=== PATIENT | female | born 1985 | race Caucasian/White ===

== ENCOUNTER 2016-09-01 20:50 | Inpatient (IN) | payer OTHER ==
--- NOTE | 2016-09-01 21:00 | PDOC ---
Rapid Medical Evaluation Chief Complaint: Redness To Affected Area Time Seen by Provider: 09/01/16 20:53 Medical Evaluation: Allergies Allergy/AdvReac Type Severity Reaction Status Date / Time Fish Containing Products Allergy Mild Rash Verified 09/01/16 20:54 Vital Signs Temp Pulse Resp BP Pulse Ox 97.6 F 121 H 20 104/51 95 09/01/16 20:54 09/01/16 20:54 09/01/16 20:54 09/01/16 20:54 09/01/16 20:54 09/01/16 20:59 RME Note: I have performed a brief, in-person evaluation of this patient . This patient presents with CC: CC hand infections post IVDA. skin popping Pertinent PE findings are: STS redness for hands I have ordered: labs The patient will proceed to ED for further evaluation.
--- NOTE | 2016-09-01 22:21 | PDOC ---
History of Present Illness - General Chief Complaint: Redness To Affected Area Stated Complaint: INFECTION Time Seen by Provider: 09/01/16 20:53 - History of Present Illness Initial Comments: 09/01/16 22:21 CHIEF COMPLAINT: 31 yo F with hx of heroin abuse (via IV and skin popping) presents to ED with redness and swelling to bilateral hands and right foot. Patient states she has had the swelling in her hands for 5 days and to her R foot for two. Patient also states that she has been vomiting at least 3 times daily for the last week as well as chills and sweats. She is unsure if she had a fever at home. HISTORY OF PRESENT ILLNESS: No recent travel or sick contacts. PAST MEDICAL HISTORY: as per HPI FAMILY HISTORY: Denies SOCIAL HISTORY: Current pack daily smoker. Patient admits to heroin use this week. Chart review indicates prevous use of marijuana, cocaine, TCAs, Oxycodone SURGICAL HISTORY: Denies ALLERGIES: fish containing products REVIEW OF SYSTEMS General/Constitutional: Chills, sweats. HEENT: Denies change in vision. Denies ear pain or discharge. Denies sore throat. Cardiovascular: Denies chest pain or shortness of breath. Respiratory: Denies cough, wheezing, or hemoptysis. Gastrointestinal: Vomiting this week. Denies diarrhea or constipation. Denies rectal bleeding. Genitourinary: Denies dysuria, frequency, or change in urination. Musculoskeletal: Denies joint or muscle swelling or pain. Denies neck or back pain. Skin and breasts: Swelling, pain, redness to hands bilaterally, redness and pain to R foot. PHYSICAL EXAM General Appearance: Ill-appearing, disheveled. HEENT: EOMI, PERRLA, normal ENT inspection, normal voice, TMs normal, pharynx normal. No conjunctival pallor. No photophobia, scleral icterus. Respiratory/Chest: Lungs CTAB. Cardiovascular: RRR. S1, S2. Gastrointestinal/Abdominal: Normal bowel sounds. Abdomen soft, non-distended. No tenderness or rebound tenderness. No organomegaly, pulsatile mass, guarding , hernia, hepatomegaly, splenomegaly. Musculoskeletal/Extremities: Markedly edematous, erythematous hands, warm and tender to touch bilaterally with multiple injection sites and scarring to arms bilaterally. Erythematous, swollen right foot, warm, tender to touch. Normal inspection. FROM of all extremities, normal capillary refill. Pelvis Stable. No CVA tenderness. No tenderness to extremities, pedal edema, swelling, erythema or deformity. Integumentary: See MSK. Neurologic: Poor eye contact, flat affect, lethargic, appears under the influence of drugs. No appreciable EOM palsy, facial droop or sensory deficit. Past History - Past Medical History Allergies/Adverse Reactions: Allergies Allergy/AdvReac Type Severity Reaction Status Date / Time Fish Containing Products Allergy Mild Rash Verified 09/01/16 20:54 Home Medications: Ambulatory Orders NK [No Known Home Medication] 05/07/16 Anemia: No Asthma: No Cancer: No Cardiac Disorders: No CVA: No COPD: No CHF: No Dementia: No Diabetes: No GI Disorders: Yes Disorders: No HTN: No Hypercholesterolemia: No Kidney Stones: No Liver Disease: No Suicide Attempt (Hx): No Seizures: No Thyroid Disease: No - Surgical History Abdominal Surgery: No Appendectomy: No Cardiac Surgery: No Cholecystectomy: No Lung Surgery: No Neurologic Surgery: No Orthopedic Surgery: No - Psycho/Social/Smoking Cessation Hx Anxiety: Yes Suicidal Ideation: No Smoking History: Current every day smoker Have you smoked in the past 12 months: Yes Number of Cigarettes Smoked Daily: 20 Cigars Per Day: 0 Information on smoking cessation initiated: No 'Breaking Loose' booklet given: 05/07/16 Hx Alcohol Use: Yes Drug/Substance Use Hx: Yes (heroin) Substance Use Type: Heroin Hx Substance Use Treatment: No *Physical Exam - Vital Signs Last Vital Signs Temp Pulse Resp BP Pulse Ox 97.6 F 121 H 20 104/51 95 09/01/16 20:54 09/01/16 20:54 09/01/16 20:54 09/01/16 20:54 09/01/16 20:54 ED Treatment Course - LABORATORY CBC & Chemistry Diagram: 09/02/16 08:20 09/02/16 08:20 Medical Decision Making - Medical Decision Making 09/02/16 04:10 31 yo F with hx of heroin abuse (via IV and skin popping) presents to ED with redness and swelling to bilateral hands and right foot. Patient appears septic, will initiate sepsis protocol. Labs: WBC 13.7 Na+ 125 Creatinine markedly elevated to 3.4, BUN 99 (previous creatinine 0.8, BUN 18) CK-Index 7.4, CKMB 13.4, trop <0.02 -1L normal saline -600 mg Clindamycin for soft tissue infection Patient's PCP is Bobby. Will admit to hospitalist for acute renal failure. Discussed case with hospitalist attending MD Brown, will admit to med/surg. *DC/Admit/Observation/Transfer Diagnosis at time of Disposition: Acute renal failure Qualifiers: Acute renal failure type: unspecified Qualified Code(s): N17.9 - Acute kidney failure, unspecified - Discharge Dispostion Admit: Yes - Referrals
[2016-09-01] MEDS ORDERED: SODIUM CHLORIDE 0.9% 1000 ML INFUS.BAG IV PRN (22:22)
--- NOTE | 2016-09-01 23:35 | PDOC ---
*Physical Exam - Vital Signs Last Vital Signs Temp Pulse Resp BP Pulse Ox 97.6 F 121 H 20 104/51 95 09/01/16 20:54 09/01/16 20:54 09/01/16 20:54 09/01/16 20:54 09/01/16 20:54 ED Treatment Course - LABORATORY CBC & Chemistry Diagram: 09/02/16 08:20 09/02/16 08:20 Medical Decision Making - Medical Decision Making 09/01/16 23:34 agree with care from NAHEED Haque *DC/Admit/Observation/Transfer Diagnosis at time of Disposition: Acute renal failure
[2016-09-02 02:55] LABS: BASOPHIL 0.4 % (0-2.0); EOSINOPHIL 3.9 % (0-4.5); MCH 28.8 pg (25.7-33.7); MEAN CELL VOLUME 84.7 fl (80-96); MEAN PLT VOLUME 9.9 fl (7.5-11.1); NEUTROPHILS 87.1 % (42.8-82.8); PLATELET COUNT 97 K/MM3 (134-434); RDW 16.2 % (11.6-15.6); WHITE BLOOD COUNT 13.7 K/mm3 (4.0-10.0)
[2016-09-02 03:13] LABS: INR 1.34 (0.82-1.09); PROTHROMBIN TIME (PATIENT) 14.8 SEC (9.98-11.88)
[2016-09-02 03:15] LABS: ACTIVATED PTT 27.5 SECONDS (26.9-34.4)
[2016-09-02 03:21] LABS: BILIRUBIN,TOTAL 0.8 mg/dL (0.2-1.0); CALCIUM 7.8 mg/dL (8.5-10.1); CREATININE 3.4 mg/dL (0.55-1.02); TOT PROT 6.4 g/dl (6.4-8.2)
[2016-09-02 03:25] LABS: TROPONIN I < 0.02 ng/ml (0.00-0.05)
[2016-09-02] MEDS ORDERED: SODIUM CHLORIDE 0.9% 1000 ML INFUS.BAG IV ONE (03:48)
[2016-09-02] MEDS ORDERED: CLINDAMYCIN 600MG PREMIX IVPB 50 ML IVPB ONE ×2 (03:49→03:58)
--- NOTE | 2016-09-02 04:23 | PN ---
<Jese Ahuja - Last Filed: 09/02/16 05:12> Teaching Attending Note ATTENDING PHYSICIAN STATEMENT I saw and evaluated the patient. I reviewed the resident's note and discussed the case with the resident. I agree with the resident's findings and plan as documented. SUBJECTIVE: 31 year old female with history of heroin abuse via injection who presented to the emergency department for evaluation of erythema and edema of hands and right foot. Patient also stated that she has been vomiting for one week in duration. OBJECTIVE: Vital Signs: Last Vital Signs Temp Pulse Resp BP Pulse Ox 97.8 F 110 H 18 108/70 95 09/02/16 03:00 09/02/16 03:00 09/02/16 03:00 09/02/16 03:00 09/02/16 03:00 Labs: CBCD WBC 13.7 K/mm3 (4.0-10.0) H D 09/02/16 02:25 RBC 3.98 M/mm3 (3.60-5.2) 09/02/16 02:25 Hgb 11.4 GM/dL (10.7-15.3) D 09/02/16 02:25 Hct 33.7 % (32.4-45.2) D 09/02/16 02:25 MCV 84.7 fl (80-96) 09/02/16 02:25 MCHC 34.0 g/dl (32.0-36.0) 09/02/16 02:25 RDW 16.2 % (11.6-15.6) H D 09/02/16 02:25 Plt Count 97 K/MM3 (134-434) L D 09/02/16 02:25 MPV 9.9 fl (7.5-11.1) D 09/02/16 02:25 CMP Sodium 125 mmol/L (136-145) L D 09/02/16 02:25 Potassium 5.1 mmol/L (3.5-5.1) D 09/02/16 02:25 Chloride 86 mmol/L (98-107) L D 09/02/16 02:25 Carbon Dioxide 21 mmol/L (21-32) 09/02/16 02:25 Anion Gap 18 (8-16) H 09/02/16 02:25 BUN 99 mg/dL (7-18) H D 09/02/16 02:25 Creatinine 3.4 mg/dL (0.55-1.02) H D 09/02/16 02:25 Creat Clearance w eGFR 15.65 (>60) 09/02/16 02:25 Calcium 7.8 mg/dL (8.5-10.1) L 09/02/16 02:25 Total Bilirubin 0.8 mg/dL (0.2-1.0) D 09/02/16 02:25 AST 60 U/L (15-37) H D 09/02/16 02:25 ALT 26 U/L (12-78) D 09/02/16 02:25 Alkaline Phosphatase 145 U/L (45-117) H D 09/02/16 02:25 Total Protein 6.4 g/dl (6.4-8.2) 09/02/16 02:25 Albumin 2.0 g/dl (3.4-5.0) L D 09/02/16 02:25 Imagin. CXR IMPRESSION: No official reading. No acute findings. 2. ECG IMPRESSION: sinus tachycardia. RSR or QR pattern in V1 suggests right ventricular conduction delay. Borderline ECG. ASSESSMENT AND PLAN: 31 year old female with history of heroin abuse presented to the emergency department with redness and swelling to bilateral hands and right foot. Found to be septic. 1. Sepsis-secondary to cellulitis -s/p clindamycin in ED can continue -Blood culture -Urinary analysis/Urinary culture -Repeat lactic acid -IVF -Consider echo since history of drug abuse 2. Acute renal failure most likely due to volume loss -IVF -Trend creatinine -Urine lytes -If no improvement can consider renal ultrasound 3. Hyponatremia- most like from hypovolemia -Continue NS -Do not increases sodium >10mq in 24 hours 4. Metabolic acidosis-anion gap most likely due to uremia 5. Polysubstance drug abuse -Detox consult -Methadone protocol 6. Right lower extremity swelling -Duplex 7. DVT PPX-low risk -SCDs Admit to med surg. Documentation prepared by Jese Ahuja, acting as director global medical affairs for Dr. Marcio Brown MD. <Marcio Brown - Last Filed: 09/02/16 06:06> Teaching Attending Note Name of Resident: Homar Reyes Physical: VS: Vital Signs Period Temp Pulse Resp BP Sys/[place] Pulse Ox Last 24 Hr 97.2 F-97.8 F 104-121 16-20 104-117/51-70 95-98 GEN: NAD, Resting in bed HEENT: NCAT, PERRRL CARD: RRR S1, S2 RESP: CTAN AND: BSx4, NTd to palpation EXT: L hand edema and eyrthema extending to L. Wrist, R. Hand Erythema, Edema < L. Haf. Excoriations bilateral LE.
[2016-09-02] MEDS ORDERED: SODIUM CHLORIDE 1,000 ML IV SCH (05:30)
[2016-09-02] MEDS ORDERED: METHADONE HCL 10 MG TABLET PO ONE ×2 (05:36→23:00)
[2016-09-02] MEDS ORDERED: METHADONE HCL 10 MG TABLET ONE (05:46)
[2016-09-02] MEDS ORDERED: ACETAMINOPHEN 325 MG TABLET (FP) PO PRN (05:57)
--- NOTE | 2016-09-02 06:03 | HP ---
CHIEF COMPLAINT: B/L hand and R foot swelling PCP: Dr. Leonid Rosales HISTORY OF PRESENT ILLNESS: 31 y/o F w/PMH of polydrug abuse presents to ER w/ c/o B/L hand swelling and R foot swelling. History was difficult to obtain as pt appeared to still be high on drugs/shaking. Pt has had hand swelling for approx 1 week and R foot swelling for 2 days. She states she only uses her hands/arms for IV drug use but not her feet. She says she has been picking at her feet. She uses IV heroin , 3 bundles per day, last use was yesterday morning. She smokes crack daily, she smokes "a couple hundred dollars worth" per day. She c/o sweats and chills since yesterday. She states she's been nauseous and vomiting for last week but denied any blood in vomit. She did say she has been spitting up blood though. Further history was difficult to obtain. Denies CP, SOB. Pt did say she would consider rehab. ER course was notable for: (1) CXR, clinda, EKG (2) (3) PAST MEDICAL HISTORY: denies any PMH; heroin use, crack use, hx of marijuana, tca, and oxy use. PAST SURGICAL HISTORY: x3 Social History: Smokin/2 ppd Alcohol: denies Drugs: heroin use 3 bundles/day via IV, crack use via sniffing - 100-200 dollars worth/day, hx of marijuana, tca, and oxy use 3 children (ages 6, 9, 12) living with father who lives separately from pt Family History: non-contributory Allergies Fish Containing Products Allergy (Mild, Verified 09/01/16 20:54) Rash HOME MEDICATIONS: Home Medications Medication Instructions Recorded NK [No Known Home Medication] 05/07/16 REVIEW OF SYSTEMS CONSTITUTIONAL: chills, malaise Absent: fever, diaphoresis, generalized weakness, loss of appetite, weight change HEENT: Absent: rhinorrhea, nasal congestion, throat pain, throat swelling, difficulty swallowing, mouth swelling, ear pain, eye pain, visual changes CARDIOVASCULAR: Absent: chest pain, syncope, palpitations, irregular heart rate, lightheadedness , peripheral edema RESPIRATORY: Absent: cough, shortness of breath, dyspnea with exertion, orthopnea, wheezing, stridor, hemoptysis GASTROINTESTINAL: nausea, vomiting Absent: abdominal pain, abdominal distension, diarrhea, constipation, melena, hematochezia GENITOURINARY: Absent: dysuria, frequency, urgency, hesitancy, hematuria, flank pain, genital pain MUSCULOSKELETAL: Absent: myalgia, arthralgia, joint swelling, back pain, neck pain SKIN: b/l hand swelling and redness, R foot swelling Absent: rash, itching, pallor HEMATOLOGIC/IMMUNOLOGIC: Absent: easy bleeding, easy bruising, lymphadenopathy, frequent infections ENDOCRINE: Absent: unexplained weight gain, unexplained weight loss, heat intolerance, cold intolerance NEUROLOGIC: Absent: headache, focal weakness or paresthesias, dizziness, unsteady gait, seizure, mental status changes, bladder or bowel incontinence PSYCHIATRIC: Absent: anxiety, depression, suicidal or homicidal ideation, hallucinations. PHYSICAL EXAMINATION Vital Signs - 24 hr 09/02/16 05:03 Temperature 97.2 F L Pulse Rate [ 104 H Radial] Respiratory 16 Rate Blood Pressure 117/55 [Right Arm] O2 Sat by Pulse 98 Oximetry (%) GENERAL: Awake, alert, in moderate distress. Constant shaking, has body jolts, eyes rolling back. HEAD: Normal with no signs of trauma. EYES: extraocular movements intact, sclera anicteric, conjunctiva clear. EARS, NOSE, THROAT: Ears normal, nares patent NECK: Normal range of motion LUNGS: Breath sounds difficult to appreciate due to her constant movement. HEART: Difficult to auscultate due to her constant movement. ABDOMEN: Soft, nontender, not distended, no guarding, no rebound, no masses. No hepatomegaly or splenomegaly. UPPER EXTREMITIES: b/l hand swelling, tender to palpation, b/l hand redness. Multiple track ramirez on b/l hands LOWER EXTREMITIES: r calf tenderness, rle 1+ pitting edema, track ramirez/skin lesions on feet. NEUROLOGICAL: Delayed speech, Gait not observed. SKIN: as noted in extremities. CBCD WBC 13.7 K/mm3 (4.0-10.0) H D 09/02/16 02:25 RBC 3.98 M/mm3 (3.60-5.2) 09/02/16 02:25 Hgb 11.4 GM/dL (10.7-15.3) D 09/02/16 02:25 Hct 33.7 % (32.4-45.2) D 09/02/16 02:25 MCV 84.7 fl (80-96) 09/02/16 02:25 MCHC 34.0 g/dl (32.0-36.0) 09/02/16 02:25 RDW 16.2 % (11.6-15.6) H D 09/02/16 02:25 Plt Count 97 K/MM3 (134-434) L D 09/02/16 02:25 MPV 9.9 fl (7.5-11.1) D 09/02/16 02:25 CMP Sodium 125 mmol/L (136-145) L D 09/02/16 02:25 Potassium 5.1 mmol/L (3.5-5.1) D 09/02/16 02:25 Chloride 86 mmol/L (98-107) L D 09/02/16 02:25 Carbon Dioxide 21 mmol/L (21-32) 09/02/16 02:25 Anion Gap 18 (8-16) H 09/02/16 02:25 BUN 99 mg/dL (7-18) H D 09/02/16 02:25 Creatinine 3.4 mg/dL (0.55-1.02) H D 09/02/16 02:25 Creat Clearance w eGFR 15.65 (>60) 09/02/16 02:25 Random Glucose 79 mg/dL (74-106) 09/02/16 02:25 Calcium 7.8 mg/dL (8.5-10.1) L 09/02/16 02:25 Total Bilirubin 0.8 mg/dL (0.2-1.0) D 09/02/16 02:25 AST 60 U/L (15-37) H D 09/02/16 02:25 ALT 26 U/L (12-78) D 09/02/16 02:25 Alkaline Phosphatase 145 U/L (45-117) H D 09/02/16 02:25 Total Protein 6.4 g/dl (6.4-8.2) 09/02/16 02:25 Albumin 2.0 g/dl (3.4-5.0) L D 09/02/16 02:25 CARDIAC ENZYMES Creatine Kinase 181 IU/L (26-192) 03/21/17 02:25 Troponin I < 0.02 ng/ml (0.00-0.05) 09/02/16 02:25 Imaging: CXR: pending official read. as per my read: LLL infiltrate ASSESSMENT/PLAN: 31 y/o F w/PMH of polydrug abuse presents to ER with B/L hand swelling and redness and R foot swelling. Admitted for sepsis secondary to cellulitis from IVDA. -Sepsis secondary to cellulitis from IVDA vs possible PNA -clindamycin iv 900 q8h -ns @ 75ml/hr -f/u bcx, ucx, ua -tylenol 650 q6h prn for fever/pain -f/u lactic acid (currently 1.6) -for possible pna: no respiratory symptoms noted for now, monitor resp status , signs of further infection -will get b/l hand xr to check for air -LUC secondary to most likely dehydration/vomiting -NS @ 75 ml/hr -monitor BUN/Cr (99/3.4 currently) -baseline cr 0.8 in 2016 -urine lytes, urine Cr -RLE swelling -duplex U/S RLE ordered -Heroin abuse -methadone protocol -Dr. Lloyd consulted -f/u utox -DVT ppx -SCDs -FEN -NS @ 75ml/hr -hyponatremia, hypochloremia secondary to vomiting, on NS @ 75ml/hr, monitor lytes. Do not increase Na by >10 in 24hrs -Will hold diet for now until mental status improves -Dispo -Admit to m/s Problem List - Problem (1) Acute renal failure Code(s): N17.9 - ACUTE KIDNEY FAILURE, UNSPECIFIED Qualifiers: Acute renal failure type: unspecified Qualified Code(s): N17.9 - Acute kidney failure, unspecified (2) Opioid dependence with withdrawal Code(s): F11.23 - OPIOID DEPENDENCE WITH WITHDRAWAL (3) IV drug user Code(s): F19.90 - OTHER PSYCHOACTIVE SUBSTANCE USE, UNSPECIFIED, UNCOMPLICATED (4) Cellulitis Code(s): L03.90 - CELLULITIS, UNSPECIFIED (5) Sepsis Code(s): A41.9 - SEPSIS, UNSPECIFIED ORGANISM Visit type - Emergency Visit Emergency Visit: Yes ED Registration Date: 09/02/16 Care time: The patient presented to the Emergency Department on the above date and was hospitalized for further evaluation of their emergent condition. - New Patient This patient is new to me today: Yes Date on this admission: 09/02/16 - Critical Care Critical Care patient: No
[2016-09-02 08:48] LABS: ALBUMIN 1.6 g/dl (3.4-5.0); BILIRUBIN,TOTAL 0.7 mg/dL (0.2-1.0); CALCIUM 7.6 mg/dL (8.5-10.1); CREATININE 2.9 mg/dL (0.55-1.02); TOT PROT 5.4 g/dl (6.4-8.2)
[2016-09-02 08:50] LABS: BASOPHIL 0.2 % (0-2.0); EOSINOPHIL 3.9 % (0-4.5); MCH 28.5 pg (25.7-33.7); MEAN CELL VOLUME 86.1 fl (80-96); MEAN PLT VOLUME 9.2 fl (7.5-11.1); NEUTROPHILS 86.8 % (42.8-82.8); PLATELET COUNT 82 K/MM3 (134-434); RDW 15.9 % (11.6-15.6)
[2016-09-02] MEDS ORDERED: diazePAM 5 MG TABLET ONE (10:45)
[2016-09-02] MEDS: diazePAM 5 MG TABLET PO PRN (10:59)
[2016-09-02] MEDS: CLINDAMYCIN 900 MG PREMIX IVPB 50 ML IVPB SCH ×3 (10:59→20:12)
--- NOTE | 2016-09-02 11:52 | EKG ---
Test Reason : Blood Pressure : / mmHG Vent. Rate : 106 BPM Atrial Rate : 106 BPM P-R Int : 116 ms QRS Dur : 090 ms QT Int : 348 ms P-R-T Axes : 041 054 041 degrees QTc Int : 462 ms SINUS TACHYCARDIA RSR' OR QR PATTERN IN V1 SUGGESTS RIGHT VENTRICULAR CONDUCTION DELAY BORDERLINE ECG NO PREVIOUS ECGS AVAILABLE Confirmed by UMU CONTRERAS MD ([id number]) on 09/02/2016 11:52:20 AM Referred By: Confirmed By:UMU CONTRERAS MD
[2016-09-02] MEDS ORDERED: VANCOMYCIN 1 GRAM (PRE-DOCKED) 250 ML IVPB SCH (13:00)
--- NOTE | 2016-09-02 15:55 | PN ---
Physical Exam: SUBJECTIVE: Patient seen and examined Pt is sleepy respond to tactile stimuli Pt is easily irritable follow simple directions when she wants to OBJECTIVE: Vital Signs Period Temp Pulse Resp BP Sys/[place]ay[place] Pulse Ox Last 24 Hr 97.2 F 104 16 117/55 98 GENERAL: The patient is sleepy, arousable by tactile stimuli, in no acute distress. HEAD: Normal with no signs of trauma. EYES: PERRL, extraocular movements intact, sclera anicteric, conjunctiva clear. No ptosis. ENT: Ears normal, nares patent, oropharynx clear without exudates, dry mucous membranes.white patchy lesion in mouth NECK: Trachea midline, full range of motion, supple. LUNGS: Breath sounds equal, clear to auscultation bilaterally, no wheezes, no crackles, no accessory muscle use. HEART: Regular rate and rhythm, S1, S2 with grade 3 systolic murmur ABDOMEN: Soft, nontender, nondistended, normoactive bowel sounds, no guarding, no rebound, no hepatosplenomegaly, no masses. EXTREMITIES: 2+ pulses, warm, well-perfused. Right lower ext with 2+ edema in ankle. mild erythema, wound around left lateral maleoulus. lesion betwenn right 4th and 5th toe web. Multiple lesions with black/eschar center and surrounding redness. b/l hands with erythema, tenderness, hot, swollen NEUROLOGICAL: lethargic arousable to tactile stimuli . Normal speech, gait not observed. PSYCH: Normal mood, normal affect. SKIN: multiple lesion in lower ext, redness, swelling, tenderness, heat in b/l hands, multiple tract ramirez from b/l arms Laboratory Results - last 24 hr 09/02/16 09/02/16 09/02/16 08:20 08:20 08:20 WBC 12.0 H RBC 3.51 L Hgb 10.0 L D Hct 30.3 L MCV 86.1 MCHC 33.0 RDW 15.9 H Plt Count 82 L MPV 9.2 Neutrophils % 86.8 H Lymphocytes % 5.8 L Monocytes % 3.3 L Eosinophils % 3.9 Basophils % 0.2 ESR Sodium 127 L Potassium 4.9 Chloride 94 L Carbon Dioxide 21 Anion Gap 12 BUN 104 H Creatinine 2.9 H Creat Clearance w eGFR 18.81 Random Glucose 80 Lactic Acid 1.218 Calcium 7.6 L Total Bilirubin 0.7 AST 44 H D ALT 21 Alkaline Phosphatase 123 H Creatine Kinase 106 Total Protein 5.4 L Albumin 1.6 L 09/02/16 13:30 WBC RBC Hgb Hct MCV MCHC RDW Plt Count MPV Neutrophils % Lymphocytes % Monocytes % Eosinophils % Basophils % ESR 47 H Sodium Potassium Chloride Carbon Dioxide Anion Gap BUN Creatinine Creat Clearance w eGFR Random Glucose Lactic Acid Calcium Total Bilirubin AST ALT Alkaline Phosphatase Creatine Kinase Total Protein Albumin Active Medications Generic Name Dose Route Start Last Admin Trade Name Freq PRN Reason Stop Dose Admin Acetaminophen 650 mg 09/02/16 05:57 Tylenol - PO Q6H PRN FEVER OR PAIN Diazepam 10 mg 09/02/16 05:36 09/02/16 10:59 Valium - PO 09/05/16 05:35 10 mg Q4H PRN Administration WITHDRAWAL(CONT SUBST) Clindamycin Phosphate 50 mls @ 100 mls/hr 09/02/16 10:00 09/02/16 10:59 Cleocin 900 Mg Premix Ivpb - IVPB 100 mls/hr Q8H-IV TANNA Administration Vancomycin HCl 250 mls @ 250 mls/hr 09/02/16 13:00 Vancomycin (Pre-Docked) IVPB 09/03/16 12:59 ONCE TANNA Protocol Sodium Chloride 1,000 mls @ 125 mls/hr 09/02/16 12:54 Normal Saline - IV ASDIR TANNA Methadone HCl 20 mg 09/03/16 10:00 Dolophine - PO 09/03/16 10:01 ONCE ONE Methadone HCl 10 mg 09/06/16 10:00 Dolophine - PO 09/06/16 10:01 ONCE ONE Methadone HCl 15 mg 09/04/16 10:00 Dolophine - PO 09/04/16 10:01 ONCE ONE Methadone HCl 15 mg 09/05/16 10:00 Dolophine - PO 09/05/16 10:01 ONCE ONE Methadone HCl 5 mg 09/07/16 06:00 Dolophine - PO 09/07/16 06:01 ONCE@0600 ONE Sodium Chloride 1,000 ml 09/01/16 22:22 09/02/16 03:33 Normal Saline - IV 1,000 ml Q20M PRN Administration MAP<65mm Hg OR SBP <90 CBC, BMP 09/02/16 08:20 03/21/17 08:20 Laboratory Tests 09/02/16 09/02/16 09/02/16 02:25 02:25 02:25 WBC 13.7 H D Neutrophils % ESR Calcium AST 60 H D ALT 26 D Alkaline Phosphatase 145 H D Creatine Kinase 181 Troponin I < 0.02 Total Protein Albumin Serum , Qual 09/02/16 09/02/16 09/02/16 02:25 08:20 08:20 WBC 12.0 H Neutrophils % 86.8 H ESR Calcium 7.6 L AST 44 H D ALT 21 Alkaline Phosphatase 123 H Creatine Kinase 106 Troponin I Total Protein 5.4 L Albumin 1.6 L Serum , Qual Negative 09/02/16 13:30 WBC Neutrophils % ESR 47 H Calcium AST ALT Alkaline Phosphatase Creatine Kinase Troponin I Total Protein Albumin Serum , Qual ASSESSMENT/PLAN: Sepsis rt B/L hand celulitis leukocytosis, tachycardia redness, swelling, tenderness, heat in b/l hands Pt with h/o IV drug abuse, last use 3 days ago Multiple track ramirez On clindamycin 900mg IV q8h Tylenol 650mg po Q6h for pain R/o endocarditis Pt is an IV drug abuser with a murmur and leukocytosis has to be worried about Endocarditis Blood culture echocardiogram ESR Vancomycin 1 gm IV Monitor vital signs Lower ext wounds and lesions Wound care nurse consulted Consult Dr Reyes Right lower ext swelling r/o DVT US lower ext negative for DVT LUC Baseline 0.8, currently 3.4 then 2.9 Increase IV fluid to 125ml/h Urine creatinine Urine lytes FENA BUN to creatinine ratio above 33 hypovolemic Hyponatremia Will treat with Normal saline Increase NS from 75ml/h to 125ml/h CMP in am Polysubstance abuse Pt is open to going to rehab Methadone taper Valium PRN Dr Bentley Keller detox rehab consult FEN Fluid: NS at 125ml/h Electrolytes: CMP in am Nutrition: regular diet with assist DVT Prophylaxis : heparin Sq 5000 Units Q12h Disposition: Keep in medsurg pending culture and echo with antibiotic treatment Visit type - Emergency Visit Emergency Visit: Yes ED Registration Date: 09/02/16 Care time: The patient presented to the Emergency Department on the above date and was hospitalized for further evaluation of their emergent condition. - New Patient This patient is new to me today: Yes Date on this admission: 09/02/16 - Critical Care Critical Care patient: No - Discharge Referral Referred to [facility] Med [facility] Yes Physician Referral: Don Reyes DO ([facility])
[2016-09-02] MEDS ORDERED: VANCOMYCIN 1 GRAM (PRE-DOCKED) 250 ML IVPB ONE (16:10)
[2016-09-02] MEDS: SODIUM CHLORIDE 1,000 ML IV SCH (16:42)
[2016-09-02 17:31] VITALS: BMI 18.2
--- NOTE | 2016-09-02 17:31 | CONSULT ---
- Consultation REQUESTING PROVIDER: Vascular surgery-Dr. Reyes CONSULT REQUEST: We have been asked to surgically evaluate this patient for lower ext wounds. PCP:Mariia Robles HISTORY OF PRESENT ILLNESS: The patient is a 31 yo female who presented to the ER for bilateral hands swelling and right foot. A history was obtained from the admission H&P. She denies any h/o diabetes and according to the chart she uses IV heroin, crack, marijuana. The patient is also on methadone. She states that she is having swelling and only uses her arms for IV drug use, not her lower extremities. Positive chills/fevers. The patient is right hand dominant. The aptient states that she has scabs on her lower ext from scratching. PMHx: IV drug abuse PSHx: c section x 3, right ankle surgery for fracture Home Medications Medication Instructions Recorded NK [No Known Home Medication] 05/07/16 Allergies Allergy/AdvReac Type Severity Reaction Status Date / Time Fish Containing Products Allergy Mild Rash Verified 09/01/16 20:54 REVIEW OF SYSTEMS: CONSTITUTIONAL: Present: fever, chills Gastroenterology: Present: vomiting SKIN: Present: swelling hand/right foot redness PHYSICAL EXAM: GENERAL: lethargic but arousable HEART: Regular rate and tachycardic UPPER EXTREMITIES: 2+ pulses, warm, well-perfused. No cyanosis. Cap refill <2 seconds. b/l hand swelling left worse than right with fluctuant area to dorsum of hand. right upper forearm/inner elbow swollen and red. tender to touch LOWER EXTREMITIES: 2+ pulses, warm, well-perfused. Right calf with swelling, RLE on lateral aspect anterior to mallelous with 2x2cm blister and indurated area/erythema extending to anterior of forefoot/posterior heel. Medial aspect a healed incision over ankle approximately 3 linear cm. RLE tender to touch. bilateral lower ext with multiple superficial small scabs. No swelling to LLE. PSYCH: uncooperative with poor eye contact Vital Signs Temperature 97.2 F L 09/02/16 05:03 Pulse Rate 104 H 09/02/16 05:03 Respiratory Rate 16 09/02/16 05:03 Blood Pressure 117/55 09/02/16 05:03 O2 Sat by Pulse Oximetry (%) 98 09/02/16 05:03 Lab Results WBC 12.0 K/mm3 (4.0-10.0) H 09/02/16 08:20 RBC 3.51 M/mm3 (3.60-5.2) L 09/02/16 08:20 Hgb 10.0 GM/dL (10.7-15.3) L D 09/02/16 08:20 Hct 30.3 % (32.4-45.2) L 09/02/16 08:20 MCV 86.1 fl (80-96) 09/02/16 08:20 MCHC 33.0 g/dl (32.0-36.0) 09/02/16 08:20 RDW 15.9 % (11.6-15.6) H 09/02/16 08:20 Plt Count 82 K/MM3 (134-434) L 09/02/16 08:20 Sodium 127 mmol/L (136-145) L 09/02/16 08:20 Potassium 4.9 mmol/L (3.5-5.1) 09/02/16 08:20 Chloride 94 mmol/L (98-107) L 09/02/16 08:20 Carbon Dioxide 21 mmol/L (21-32) 09/02/16 08:20 Anion Gap 12 (8-16) 09/02/16 08:20 BUN 104 mg/dL (7-18) H 09/02/16 08:20 Creatinine 2.9 mg/dL (0.55-1.02) H 09/02/16 08:20 Random Glucose 80 mg/dL (74-106) 09/02/16 08:20 Calcium 7.6 mg/dL (8.5-10.1) L 09/02/16 08:20 Blood Type O POSITIVE 09/02/16 02:25 Antibody Screen Negative 09/02/16 02:25 INR 1.34 (0.82-1.09) H 09/02/16 02:25 Vacular study: 09/02- No evidence of DVT to RLE b/l hand xray 09/02-soft tissue swelling, no fractures/dislocations A/P: 31 yo female with IV drug abuse admitted for fever/swelling to upper ext and RLE Spoke with Dr. Reyes and recommend to continue IV abx No evidence of DVT to RLE but pt with blister and infected foot, ordered right foot xray to r/o fracture/trauma since patient is a poor historian. She may require I&D and surgery to follow the patient. Recommend hand consult for b/l swelling left>than right and fluctuant area elevate RLE/and b/l upper ext at all times Visit type - Case Type Case Type: ED Admission - Emergency Emergency Visit: Yes ED Registration Date: 09/02/16 Care time: The patient presented to the Emergency Department on the above date and was hospitalized for further evaluation of their emergent condition. - New patient This patient is new to me today: Yes Date on this admission: 09/02/16 - Critical Care Critical Care patient: No
--- NOTE | 2016-09-02 18:03 | PN ---
[id number] the resident's note and discussed the case with the resident. I agree with the resident's findings and plan as documented. SUBJECTIVE:pt is a poor historian, lethargic during our interview and frequent falls asleep during questioning and becomes agitated not wanting to answer questions. pt states she first had a pimple on her R foot (did not use lancet or device to break the skin) about a week ago, then 4 days ago noted swelling of the RLE. states she last injected heroin 3 days ago that she only does in her hands and denies ever injecting into her feet. denies CP, SOB,fever, chills, N/V/?CD, trauma to the foot. noted to have multiple excoriations all over her legs and arms when questioned she states she likes to pick at her skin. OBJECTIVE: Last Vital Signs Temp Pulse Resp BP Pulse Ox 97.2 F L 114 H 18 117/51 98 09/02/16 05:03 09/02/16 17:10 09/02/16 17:10 09/02/16 17:10 09/02/16 05:03 General lethargic. responds to verbal stimuli, disheveled. poor hygiene, thin appearing, older than stated age CV S1 S2 tachycardic. + murmur no rubs or gallops Extremities B/L hand non pitting edema and erythema. hands are non painful. pulses intact in the hands, excoriations along the arms and track ramirez noted in B/L antecubitals 1-2cm hemorrhagic indurated swelling on the lateral malleolus of the R foot. area is tender. <1cm swelling on anterior ankle with surrounding erythema, excoriations along both legs no osler nodes, janeway lesions, splinter hemorrhages or giron spots appreciated ASSESSMENT AND PLAN: 31yo F with PMH continous IV heroin abuse presented to the ER and was admitted for further evaluation of their emergent condition 1. sepsis due to cellulitis of the B/L hands- XR showing swelling limited to B/ L hands. started on clindamycin. concern for endocarditis given presence of murmur with IVDA. check ESR. give vanco x1. IVF. f/u Cx 2. R foot hemorrhagic lesion- unsure if this require drainage or just watchful waiting at this time. surgery consulted. XR of the foot pending 3. LUC- likel sepsis induced. check urine studies. avoid nephrotoxic medications. 4. Hyponatremia- dehydration. improving. do not believe lethargy is symptomatic of hyponatremia 5. pseudohypocalcemia- Corrected Ca 9.5 6. Continuos heroin abuse- currently lethargic due to methadone dose given, does wake up to verbal stimulation. detox consult placed. methadone protocol initiated. monitor for signs of withdrawal. unsure if she wants inpatient rehab at this time 7. DVT ppx- EAM
[2016-09-02 19:51] LABS: URINE APPEARANCE CLOUDY; URINE BILIRUBIN NEGATIVE (NEGATIVE); URINE BLOOD NEGATIVE (NEGATIVE); URINE COLOR YELLOW; URINE GLUCOSE (UA) NEGATIVE (NEGATIVE); URINE KETONE NEGATIVE (NEGATIVE); URINE NITRITE NEGATIVE (NEGATIVE); URINE PROTEIN NEGATIVE (NEGATIVE); URINE UROBILINOGEN 2.0 E.U/dl E.U./dl (0.2-1.0)
[2016-09-02 19:53] LABS: URINE LEUK ESTERASE 2+ (NEGATIVE)
[2016-09-02 19:58] LABS: GRANULAR CASTS 3 /lpf; URINE BACTERIA RARE /hpf (NONE SEEN); URINE RBC 4 /hpf (0-3); URINE WBC 35 /hpf (3-5)
[2016-09-02 19:59] LABS: URINE MARIJUANA THC NEGATIVE ng/ml (CUTOFF=50)
--- NOTE | 2016-09-02 22:15 | CONSULT ---
Consult Detox [facility] Reason for Current Admission/Consult: Opioid withdrawal Referred by:: Homar Reyes Res - History History of Present Illness: 31 y/o pt. with a 5 yr. hx. of heroin dependence is admitted because cellulitis/ abscess of the extremities. Pt. has hx. of detox last year at [facility]. - History Source History Provided By: Patient, Medical Record - Alcohol/Substance Use Hx Alcohol Use: Yes Hx Substance Use: Yes Hx Substance Use Treatment: Yes - Current Drug/Alcohol Use heroin Route: Injection Frequency: Daily Amount used: 20 to 30 bags Age of first use: 26 Date of Last Use: 09/01/16 - Past Medical History ...LMP: 05/09/10 - Significant Medical Findings: Laboratory Last Values WBC 12.7 K/mm3 (4.0-10.0) H 09/03/16 06:30 RBC 3.06 M/mm3 (3.60-5.2) L 09/03/16 06:30 Hgb 8.7 GM/dL (10.7-15.3) L D 09/03/16 06:30 Hct 26.2 % (32.4-45.2) L 09/03/16 06:30 MCV 85.5 fl (80-96) 09/03/16 06:30 MCHC 33.2 g/dl (32.0-36.0) 09/03/16 06:30 RDW 16.2 % (11.6-15.6) H 09/03/16 06:30 Plt Count 92 K/MM3 (134-434) L 09/03/16 06:30 MPV 8.3 fl (7.5-11.1) 09/03/16 06:30 Neutrophils % 91.5 % (42.8-82.8) H 09/03/16 06:30 Lymphocytes % 5.1 % (8-40) L 09/03/16 06:30 Monocytes % 2.5 % (3.8-10.2) L 09/03/16 06:30 Eosinophils % 0.5 % (0-4.5) D 09/03/16 06:30 Basophils % 0.4 % (0-2.0) 09/03/16 06:30 ESR 47 mm/hr (0-20) H 09/02/16 13:30 INR 1.34 (0.82-1.09) H 09/02/16 02:25 PTT (Actin FS) 27.5 SECONDS (26.9-34.4) 09/02/16 02:25 Sodium 134 mmol/L (136-145) L 09/03/16 06:30 Potassium 4.4 mmol/L (3.5-5.1) 09/03/16 06:30 Chloride 101 mmol/L (98-107) 09/03/16 06:30 Carbon Dioxide 21 mmol/L (21-32) 09/03/16 06:30 Anion Gap 12 (8-16) 09/03/16 06:30 BUN 72 mg/dL (7-18) H D 09/03/16 06:30 Creatinine 1.7 mg/dL (0.55-1.02) H D 09/03/16 06:30 Creat Clearance w eGFR 34.83 (>60) 09/03/16 06:30 Random Glucose 87 mg/dL (74-106) 09/03/16 06:30 Lactic Acid 1.218 mmol/L (0.4-2.0) 09/02/16 08:20 Calcium 7.3 mg/dL (8.5-10.1) L 09/03/16 06:30 Phosphorus 3.8 mg/dL (2.5-4.9) 09/03/16 06:30 Magnesium 2.5 mg/dL (1.8-2.4) H 09/03/16 06:30 Total Bilirubin 0.9 mg/dL (0.2-1.0) D 09/03/16 06:30 AST 27 U/L (15-37) D 09/03/16 06:30 ALT 17 U/L (12-78) 09/03/16 06:30 Alkaline Phosphatase 112 U/L (45-117) 09/03/16 06:30 Creatine Kinase 106 IU/L (26-192) 09/02/16 08:20 Creatine Kinase Index 7.4 % (0.0-5.0) H* 09/02/16 02:25 CK-MB (CK-2) 13.409 ng/ml (0.5-3.6) H 09/02/16 02:25 Troponin I < 0.02 ng/ml (0.00-0.05) 09/02/16 02:25 Total Protein 5.3 g/dl (6.4-8.2) L 09/03/16 06:30 Albumin 1.5 g/dl (3.4-5.0) L 09/03/16 06:30 Serum , Qual Negative 09/02/16 02:25 Urine Color Yellow 09/02/16 19:24 Urine Appearance Cloudy 09/02/16 19:24 Urine pH 5.0 (5.0-8.0) 09/02/16 19:24 Ur Specific [place] 1.015 (1.001-1.035) 09/02/16 19:24 Urine Protein Negative (NEGATIVE) 09/02/16 19:24 Urine Glucose (UA) Negative (NEGATIVE) 09/02/16 19:24 Urine Ketones Negative (NEGATIVE) 09/02/16 19:24 Urine Blood Negative (NEGATIVE) 09/02/16 19:24 Urine Nitrite Negative (NEGATIVE) 09/02/16 19:24 Urine Bilirubin Negative (NEGATIVE) 09/02/16 19:24 Urine Urobilinogen 2.0 e.u/dl E.U./dl (0.2-1.0) H 09/02/16 19:24 Ur Leukocyte Esterase 2+ (NEGATIVE) H 09/02/16 19:24 Urine RBC 4 /hpf (0-3) 09/02/16 19:24 Urine WBC 35 /hpf (3-5) 09/02/16 19:24 Ur Epithelial Cells Rare /hpf (FEW) 09/02/16 19:24 Urine Bacteria Rare /hpf (NONE SEEN) 09/02/16 19:24 Granular Casts 3 /lpf 09/02/16 19:24 Ur Random Sodium 29 MMOL/L 09/03/16 06:15 Ur Random Potassium 14.2 MMOL/L 09/03/16 06:15 Ur Random Chloride < 10 MMOL/L 09/03/16 06:15 Urine Creatinine 47.2 mg/dL 09/03/16 06:15 Random Vancomycin 19.149 ug/ml 09/03/16 22:02 Opiates Screen Positive ng/ml (RRPBLJ=857) 09/02/16 19:24 Methadone Screen Positive ng/ml (BHZCXM=299) 09/02/16 19:24 Barbiturate Screen Negative ng/ml (ZHSAML=878) 09/02/16 19:24 Phencyclidine Screen Negative ng/ml (CUTOFF=25) 09/02/16 19:24 Ur Amphetamines Screen Negative ng/ml (MNNHIT=751) 09/02/16 19:24 MDMA (Ecstasy) Screen Negative ng/ml (OPSVPC=352) 09/02/16 19:24 Benzodiazepines Screen Negative ng/ml (HAHZLF=966) 09/02/16 19:24 Cocaine Screen Positive ng/ml (CAONAN=648) 09/02/16 19:24 U Marijuana (THC) Screen Negative ng/ml (CUTOFF=50) 09/02/16 19:24 HIV 1&2 Antibody Screen Negative 09/03/16 06:30 HIV P24 Antigen Negative 09/03/16 06:30 Blood Type O POSITIVE 09/02/16 02:25 Antibody Screen Negative 09/02/16 02:25 labs noted COWS - Scale Resting Pulse: 2= [place] 101-120 Sweatin=Flushed/Facial Moisture Restless Observation: 1= Difficult to Sit Still Pupil Size: 2= Moderately Dilated Bone or Joint Aches: 2= Severe Diffuse Aches Runny Nose/ Eye Tearin= Runny Nose/Eyes GI Upset > 30mins: 3= Vomiting/Diarrhea Tremor Observation: 2= Slight Tremor Visible Yawning Observation: 1= 1-2x During Session Anxiety or Irritability: 2=Irritable/Anxious Goose Flesh Skin: 0=Smooth Skin COWS Score: 19 Assessment Plan - Diagnosis (1) Acute renal failure Status: Acute Qualifiers: Acute renal failure type: unspecified Qualified Code(s): N17.9 - Acute kidney failure, unspecified (2) Opioid dependence with withdrawal Status: Acute (3) Cellulitis Status: Acute (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 was transferred to [facility] for Cardio-thoraxic care if needed - Medication Detox Regimen/Protocol: Methadone
[2016-09-03] MEDS: CLINDAMYCIN 900 MG PREMIX IVPB 50 ML IVPB SCH ×2 (03:02→11:01)
[2016-09-03] MEDS: SODIUM CHLORIDE 1,000 ML IV SCH ×3 (05:47→21:02)
--- NOTE | 2016-09-03 07:44 | PN ---
Physical Exam: SUBJECTIVE: Patient seen and examined Pt seen ths morning looks uncomfortable and fidgety, anxious and restless c/o pain in right hand no fever, no chills no n/v c/o productive cough with brown and bloody sputum sputum OBJECTIVE: Vital Signs Period Temp Pulse Resp BP Sys/[place] Pulse Ox Last 24 Hr 97.8 F-98.4 F 104-114 18-20 112-117/51-61 96 GENERAL: The patient is sleepy, arousable by tactile stimuli, in no acute distress. HEAD: Normal with no signs of trauma. EYES: PERRL, extraocular movements intact, sclera anicteric, conjunctiva clear. No ptosis. ENT: Ears normal, nares patent, oropharynx clear without exudates, dry mucous membranes.white patchy lesion in mouth NECK: Trachea midline, full range of motion, supple. LUNGS: Breath sounds equal, clear to auscultation bilaterally, no wheezes, no crackles, no accessory muscle use. HEART: Regular rate and rhythm, S1, S2 with grade 3 systolic murmur ABDOMEN: Soft, nontender, nondistended, normoactive bowel sounds, no guarding, no rebound, no hepatosplenomegaly, no masses. EXTREMITIES: 2+ pulses, warm, well-perfused. Right lower ext with 2+ edema in ankle. mild erythema, wound around left lateral maleoulus with blisters. Lesion between right 4th and 5th toe web. Multiple lesions with black/eschar center and surrounding redness. b/l hands with erythema, tenderness, hot, swollen NEUROLOGICAL: lethargic arousable to tactile stimuli . Normal speech, gait not observed. PSYCH: Normal mood, normal affect. SKIN: multiple lesion in lower ext, redness, swelling, tenderness, heat in b/l hands, multiple tract ramirez from b/l arms Laboratory Results - last 24 hr 09/02/16 09/02/16 09/02/16 08:20 08:20 08:20 WBC 12.0 H RBC 3.51 L Hgb 10.0 L D Hct 30.3 L MCV 86.1 MCHC 33.0 RDW 15.9 H Plt Count 82 L MPV 9.2 Neutrophils % 86.8 H Lymphocytes % 5.8 L Monocytes % 3.3 L Eosinophils % 3.9 Basophils % 0.2 ESR Sodium 127 L Potassium 4.9 Chloride 94 L Carbon Dioxide 21 Anion Gap 12 BUN 104 H Creatinine 2.9 H Creat Clearance w eGFR 18.81 Random Glucose 80 Lactic Acid 1.218 Calcium 7.6 L Total Bilirubin 0.7 AST 44 H D ALT 21 Alkaline Phosphatase 123 H Creatine Kinase 106 Total Protein 5.4 L Albumin 1.6 L Urine Color Urine Appearance Urine pH Ur Specific [place] Urine Protein Urine Glucose (UA) Urine Ketones Urine Blood Urine Nitrite Urine Bilirubin Urine Urobilinogen Ur Leukocyte Esterase Urine RBC Urine WBC Ur Epithelial Cells Urine Bacteria Granular Casts Opiates Screen Methadone Screen Barbiturate Screen Phencyclidine Screen Ur Amphetamines Screen MDMA (Ecstasy) Screen Benzodiazepines Screen Cocaine Screen U Marijuana (THC) Screen 09/02/16 09/02/16 09/02/16 13:30 19:24 19:24 WBC RBC Hgb Hct MCV MCHC RDW Plt Count MPV Neutrophils % Lymphocytes % Monocytes % Eosinophils % Basophils % ESR 47 H Sodium Potassium Chloride Carbon Dioxide Anion Gap BUN Creatinine Creat Clearance w eGFR Random Glucose Lactic Acid Calcium Total Bilirubin AST ALT Alkaline Phosphatase Creatine Kinase Total Protein Albumin Urine Color Yellow Urine Appearance Cloudy Urine pH 5.0 Ur Specific [place] 1.015 Urine Protein Negative Urine Glucose (UA) Negative Urine Ketones Negative Urine Blood Negative Urine Nitrite Negative Urine Bilirubin Negative Urine Urobilinogen 2.0 e.u/dl H Ur Leukocyte Esterase 2+ H Urine RBC 4 Urine WBC 35 Ur Epithelial Cells Rare Urine Bacteria Rare Granular Casts 3 Opiates Screen Positive Methadone Screen Positive Barbiturate Screen Negative Phencyclidine Screen Negative Ur Amphetamines Screen Negative MDMA (Ecstasy) Screen Negative Benzodiazepines Screen Negative Cocaine Screen Positive U Marijuana (THC) Screen Negative Active Medications Generic Name Dose Route Start Last Admin Trade Name Freq PRN Reason Stop Dose Admin Acetaminophen 650 mg 09/02/16 05:57 Tylenol - PO Q6H PRN FEVER OR PAIN Diazepam 10 mg 09/02/16 05:36 09/02/16 10:59 Valium - PO 09/05/16 05:35 10 mg Q4H PRN Administration WITHDRAWAL(CONT SUBST) Clindamycin Phosphate 50 mls @ 100 mls/hr 09/02/16 10:00 09/03/16 03:02 Cleocin 900 Mg Premix Ivpb - IVPB 100 mls/hr Q8H-IV TANNA Administration Vancomycin HCl 250 mls @ 250 mls/hr 09/02/16 13:00 09/02/16 13:42 Vancomycin (Pre-Docked) IVPB 09/03/16 12:59 250 mls/hr ONCE TANNA Administration Protocol Sodium Chloride 1,000 mls @ 125 mls/hr 09/02/16 12:54 09/03/16 05:47 Normal Saline - IV 125 mls/hr ASDIR TANNA Administration Methadone HCl 20 mg 09/03/16 10:00 Dolophine - PO 09/03/16 10:01 ONCE ONE Methadone HCl 10 mg 09/06/16 10:00 Dolophine - PO 09/06/16 10:01 ONCE ONE Methadone HCl 15 mg 09/04/16 10:00 Dolophine - PO 09/04/16 10:01 ONCE ONE Methadone HCl 15 mg 09/05/16 10:00 Dolophine - PO 09/05/16 10:01 ONCE ONE Methadone HCl 5 mg 09/07/16 06:00 Dolophine - PO 09/07/16 06:01 ONCE@0600 ONE Sodium Chloride 1,000 ml 09/01/16 22:22 09/02/16 03:33 Normal Saline - IV 1,000 ml Q20M PRN Administration MAP<65mm Hg OR SBP <90 CBC, BMP 09/03/16 06:30 09/03/16 06:30 Microbiology 09/02/16 02:25 Blood - Peripheral Venous Blood Culture - Preliminary Presumptive Mrsa (Pbp2a Pos) 09/02/16 02:25 Blood - Peripheral Venous Blood Culture - Preliminary Pending Organism Laboratory Tests 09/02/16 09/02/16 09/03/16 13:30 19:24 06:15 ESR 47 H Ur Random Sodium Ur Random Potassium Ur Random Chloride Urine Creatinine Cancelled Random Vancomycin Opiates Screen Positive Methadone Screen Positive Cocaine Screen Positive HIV 1&2 Antibody Screen HIV P24 Antigen 09/03/16 09/03/16 09/03/16 06:15 06:30 06:30 ESR Ur Random Sodium 29 Ur Random Potassium 14.2 Ur Random Chloride < 10 Urine Creatinine Random Vancomycin 13.576 Opiates Screen Methadone Screen Cocaine Screen HIV 1&2 Antibody Screen Negative HIV P24 Antigen Negative ASSESSMENT/PLAN: Sepsis rt B/L hand cellulitis leukocytosis, tachycardia redness, swelling, tenderness, heat in b/l hands Pt with h/o IV drug abuse, last use 3 days ago Multiple track ramirez On clindamycin 900mg IV q8h Tylenol 650mg po Q6h for pain Blood culture pending ESR 47 No plastic needed nothing to drain ID consult Dr Souza R/o endocarditis Pt is an IV drug abuser with a murmur and leukocytosis has to be worried about Endocarditis Blood culture positve Gram positive cocci echocardiogram with vegetation in tricuspid ESR 47 received Vancomycin 1 gm IV yesterday Random vanco 13, Will give one more dose of Vancomycin 1gm IV Monitor vital signs ID consult, dr Souza Cardiology Consult, dr Miller UTI UA with postive leuk est, wbc 35 Urine culture ordered Lower ext wounds and lesions Wound care nurse consulted Dr Reyes consulted Xray right ankle ordered Possible I&D in the future Right lower ext swelling r/o DVT US lower ext negative for DVT Patchy infiltrates b/l lungs r/o PNA vs Septic emboli c/o yellow, brown, bloody sputum productive cough b/l crackles Consider sputum culture ad gram stain Consider urine for PNA antigens CT chest LUC Baseline 0.8, currently 3.4 then 2.9 IV fluid to 125ml/h Urine creatinine pending Urine lytes pending FENA pending BUN to creatinine ratio above 33 CMP pending result for this morning hypovolemic Hyponatremia Will treat with Normal saline Increase NS from 125ml/h to 75ml/h CMP pending Polysubstance abuse Pt is open to going to rehab Methadone taper Valium PRN Dr Bentley Keller detox rehab consult, see pt last night night FEN Fluid: NS at 75ml/h Electrolytes: CMP Nutrition: regular diet with assist DVT Prophylaxis : heparin Sq 5000 Units Q12h Disposition: Keep in medsurg pending final culture and echo with antibiotic treatment Visit type - Emergency Visit Emergency Visit: Yes ED Registration Date: 09/02/16 Care time: The patient presented to the Emergency Department on the above date and was hospitalized for further evaluation of their emergent condition. - New Patient This patient is new to me today: No - Critical Care Critical Care patient: No - Discharge Referral Referred to [facility] Med P.C.: No
[2016-09-03 07:48] LABS: MAGNESIUM 2.5 mg/dL (1.8-2.4); PHOSPHOROUS 3.8 mg/dL (2.5-4.9)
[2016-09-03] MEDS ORDERED: VANCOMYCIN 1 GRAM (PRE-DOCKED) 250 ML IVPB SCH (09:45)
--- NOTE | 2016-09-03 09:50 | PN ---
Progress Note (short form) - Note Progress Note: Pt just returned from xray and has complaints of pain. Vital Signs Period Temp Pulse Resp BP Sys/[place] Pulse Ox Last 24 Hr 97.8 F-98.4 F 104-114 18-20 112-124/51-61 96 PE: GEN: appears uncomfortable, more alert today UE: b/l hand with swelling/erythema unchanged. Right forearm feels indurated/ erythema. Right lower ext /foot with decreased swelling. Blister remains unchanged but overall erythema/induration decreased. Right foot/ankle xray: previous medial malleolar stabilization screws. No fracture or subluxation seen. CBC, BMP 09/02/16 08:20 09/02/16 08:20 Microbiology 09/02/16 02:25 Blood - Peripheral Venous Blood Culture - Preliminary Pending Organism 09/02/16 02:25 Blood - Peripheral Venous Blood Culture - Preliminary Pending Organism A/P: 31 yo female with IVDA, now with b/l hand swelling and cellulitis and Right ankle/foot cellulitis. Pt also with ULC. Evidence of improvment to right right ankle/foot infection. Xray no fracture/ foreign body seen. Recommend to continue IV abx as per ID. Elevate extremities at all times. Surgery to follow the patient. May apply bacitracin to right anterior foot scabbed area.
[2016-09-03] MEDS ORDERED: METHADONE HCL 10 MG TABLET PO ONE (10:00)
[2016-09-03 10:08] LABS: BASOPHIL 0.4 % (0-2.0); EOSINOPHIL 0.5 % (0-4.5); MCH 28.4 pg (25.7-33.7); MCHC 33.2 g/dl (32.0-36.0); MEAN CELL VOLUME 85.5 fl (80-96); MEAN PLT VOLUME 8.3 fl (7.5-11.1); NEUTROPHILS 91.5 % (42.8-82.8); PLATELET COUNT 92 K/MM3 (134-434); RDW 16.2 % (11.6-15.6); WHITE BLOOD COUNT 12.7 K/mm3 (4.0-10.0)
[2016-09-03 10:09] LABS: SODIUM,RANDOM URINE 29 MMOL/L
[2016-09-03 10:11] LABS: CHLORIDE,RANDOM URINE < 10 MMOL/L
[2016-09-03 10:14] LABS: HIV 1 & 2 AB NEGATIVE; HIV 1 AGp24 NEGATIVE
[2016-09-03 10:59] LABS: ALBUMIN 1.5 g/dl (3.4-5.0); BILIRUBIN,TOTAL 0.9 mg/dL (0.2-1.0); CALCIUM 7.3 mg/dL (8.5-10.1); CREATININE 1.7 mg/dL (0.55-1.02); TOT PROT 5.3 g/dl (6.4-8.2)
--- NOTE | 2016-09-03 11:57 | PN ---
Progress Note (short form) - Note Progress Note: Consult Dictated MRSA bacteremia TV echodensity suspicious for vegetation REC: Likely endocarditis. Would treat as such. Can perform NATHAN if needed.
--- NOTE | 2016-09-03 11:59 | PN ---
Progress Note (short form) - Note Progress Note: ID consult dictated imp/reccd 31 year old female active IVDU with heroin also uses cocaine/etoh/marijuana and cigarettes hep C positive admitted with vomiting for one week and erythema of both hands and right foot for last 5 days admits to injecting in the dorsum of both hands does not inject in her feet +myalgias- total body no documented fevers originally from [place] staying with friends and 3 children in [place] Staphylococcal endocarditis- tricuspid valve- suspect septic emboli to lung given appearance of cxray- will get chest ct suggest repeat blood cultures cardiology consult suspect intense myalgias are due to bacteremia and drug withdrawal continue vancomycin based on levels esr/crp duplex both arms cellulitis of both hands/right foot (with hardware) hep c positive hiv negative active substance use Problem List - Problems (1) Endocarditis due to Staphylococcus Code(s): I33.0 - ACUTE AND SUBACUTE INFECTIVE ENDOCARDITIS B95.8 - UNSP STAPHYLOCOCCUS THE CAUSE OF DISEASES CLASSD ELSWHR (2) Cellulitis Code(s): L03.90 - CELLULITIS, UNSPECIFIED (3) IV drug user Code(s): F19.90 - OTHER PSYCHOACTIVE SUBSTANCE USE, UNSPECIFIED, UNCOMPLICATED (4) Hep C w/o coma, chronic Code(s): B18.2 - CHRONIC VIRAL HEPATITIS C
[2016-09-03 12:30] LABS: URINE CREATININE 47.2 mg/dL
--- NOTE | 2016-09-03 14:05 | PN ---
Teaching Attending Note Name of Resident: Mikey Brown ATTENDING PHYSICIAN STATEMENT I saw and evaluated the patient. I reviewed the resident's note and discussed the case with the resident. I agree with the resident's findings and plan as documented. SUBJECTIVE:c/o diffuse myalgia. no improvement in pain in RLE or hands. assoc SEBASTIAN. denies CP, fever, chills, cough, N/V/C/D OBJECTIVE: Last Vital Signs Temp Pulse Resp BP Pulse Ox 98.1 F 112 H 20 124/55 96 09/03/16 08:36 09/03/16 08:36 09/03/16 08:36 09/03/16 08:36 09/02/16 21:00 General more alert today, no giron spots CV S1 S2 tachycardic. + murmur no rubs or gallops Lungs B/L basal crackles. no wheezing Extremities B/L hand non pitting edema and erythema.hands are painful with swelling of the 2nd distal metacarpal joint of the L hand. RUE appears to be more edematous. no change in hemorrhagic bulla R foot lateral malleolus no splinter hemorrhages, osler nodes or janeway lesions Microbiology 09/02/16 02:25 Blood Culture - Preliminary Blood - Peripheral Venous Presumptive Mrsa (Pbp2a Pos) 09/02/16 02:25 Blood Culture - Preliminary Blood - Peripheral Venous Pending Organism ASSESSMENT AND PLAN: 31yo F with PMH continous IV heroin abuse presented to the ER and was admitted for further evaluation of their emergent condition 1. Sepsis due to Endocarditis- Bcx showing MRSA at this time. concern for septic emboli to the lungs. obtain CT chest. RUE u/s to r/o DVT in upper extremity. ID and cardio consulted. will d/c clindamycin at this point and continue vanco by level. concern as will need terminal makeup operator abx with hx of IVDA. will repeat Bcx in 72H to evaluate for clearing of infection. supplemental oxygen to maintain spO2 >90% 2. R foot hemorrhagic lesion- monitor 3. LUC- likely sepsis induced. Fena 0.78, Cr trending down. good UOP. will reduce IVF at this time due to development of crackles. avoid nephrotoxic medications. 4. Hyponatremia- dehydration. resolved 5. pseudohypocalcemia- Corrected Ca 9.5 6. Continuos heroin abuse-COWS 13. on methadone taper. detox evaluation. monitor. 7. DVT ppx- EAM
[2016-09-03] MEDS: diazePAM 5 MG TABLET PO PRN (16:57)
--- NOTE | 2016-09-03 18:37 | CONS ---
INFECTIOUS DISEASE CONSULTATION DATE OF CONSULTATION: DATE OF DICTATION: 09/03/2016 REQUESTED BY: The hospitalist service DICTATED BY: SURESH MEDINA MD HISTORY OF PRESENT ILLNESS: This is a 31-year-old woman who is an active heroine user, injection-drug user. She presented to the emergency room with complaints of 5 days of bilateral hand swelling. She injects in the dorsum of her hands and in her forearms. As well, she is complaining of right leg pain. She has apparently been vomiting as well for a week. She denies any antibiotic use prior to admission. She is originally from [place]. She is staying here with friends. She is unable to say when she fractured her right ankle, which has an incision and hardware at this time. She complains of intense myalgias and discomfort but is hungry and wants to eat. Looking through the computer, she was hospitalized once in April of 2016 for a de-tox, and her hepatitis C serology was positive at that time. ALLERGIES: She is allergic to FISH-CONTAINING PRODUCTS. MEDICATIONS: She does not take any medicine. PAST MEDICAL HISTORY: Unremarkable. SURGICAL HISTORY: Surgical history is notable for a x 3. She has also fractured her right ankle, and medical history is notable for hepatitis C. She was evaluated in the emergency room and started on clindamycin for cellulitis. SOCIAL HISTORY: Notable for cigarette use. She uses heroine, crack. She has a history of prior marijuana and oxycodone use. She has 3 children, ages 6, 9 and 12 who live with their father in [place]. She is originally from [place], and she has been living here for the last 6 months down in [place]. FAMILY HISTORY: Noncontributory. REVIEW OF SYSTEMS: She complains of intense myalgias. She does not know if she has been having fever. She has been vomiting at home. She has bilateral hand swelling and right foot swelling and pain. PHYSICAL EXAM: General: She is sleepy but arouseable. Vital signs: Her temperature is 98.1, pulse of 112. Blood pressure is 124/55. Respiratory rate is 20. HEENT exam: She is normocephalic. Her eyes are anicteric. She has no conjunctival hemorrhages. Her neck is supple. She has no meningeal signs. Lungs: Diminished breath sounds at the bases. Heart: Regular rate and rhythm. She has a 2/6 systolic ejection murmur. Abdomen: Soft, nondistended. She has bowel sounds. She has a well-healed scar. Extremities: Notable for an incision at the medial malleolus that is well-healed. On the lateral malleolus of the right foot, she has a blister on the lateral aspect. She has bilateral hand swelling. Both her hands are indurated. She has erythema of the right hand, which extends up to her right forearm. There are some track ramirez as well on her arms. LABS: Notable for a white count of 12.7, hemoglobin 8.7. Platelets are 92,000. Sed rate is 47. INR is 1.3. BUN and creatinine on admission were 99 and 3.4, this morning were 72 and 1.7. Total bilirubin is 0.9. LFTs are normal today. Albumin is 1.5. Urinalysis is 2+ leukocyte esterase with 35 white cells. Tox screen was positive for opiates, methadone and cocaine, and her HIV test is negative. Blood cultures 404 bottles drawn yesterday are growing gram positive cocci in clusters, presumptive MRSA. Chest x-ray reveals bilateral patchy infiltrates that look kind of mass-like and nodular. X-rays of her hands and feet are notable for hardware in her right foot. She has 2 screws. She had a duplex of the right leg done as well that is negative. Hands are notable for swelling on the x-rays, soft tissue swelling of both the hands. Echocardiogram was just done and shows a possible tricuspid valve vegitation. 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 I suspect septic emboli to her lung, given the appearance of the chest x-ray. Will get a chest CT to confirm. Suggest repeating blood cultures, cardiology consult. Suspect the intense myalgias are due to her bacteremia and drug withdrawal. PLAN: 1. Would continue vancomycin based on levels. Follow her sed rate CRP with duplex her arms. She has cellulitis of both her arms and her foot. Would continue vancomycin, which should be appropriate care. She is hepatitis C positive and HIV negative. 2. Further recommendations to follow. The case was discussed with Cardiology as well as Dr. Robles. SURESH MEDINA M.D. [id number] cc: Mariia Robles MD
--- NOTE | 2016-09-03 19:08 | HOSP ---
Subjective - Review of Symptoms Subjective: CT chest performed and reviewed results discussed with both ID and cardiology, due to extent of disease pt would benefit from transfer to tertiary care center for higher level of care as well as to have CT surgeon on standby. case d/w Dr Muñoz who agreed with transfer Pt accepted by Dr Cunningham at [facility] Physical Examination Vital Signs: Vital Signs Temperature 98.9 F 09/03/16 17:31 Pulse Rate 107 H 09/03/16 17:31 Respiratory Rate 22 09/03/16 17:31 Blood Pressure 138/72 09/03/16 17:31 O2 Sat by Pulse Oximetry (%) 96 09/03/16 09:00 Labs: CBC, BMP 09/03/16 06:30 09/03/16 06:30
--- NOTE | 2016-09-03 19:25 | CONS ---
CARDIOLOGY CONSULTATION DATE OF CONSULTATION: DATE OF DICTATION: 09/03/2016 REQUESTED BY: Dr. Brown HISTORY OF PRESENT ILLNESS: The patient is a 31-year-old female with polysubstance abuse, including IV heroin abuse, who was admitted to our hospital on September 01 with swelling of both hands. She was hospitalized with an elevated white blood cell count. She was subsequently found to have MRSA bacteremia. She underwent an echocardiogram on September 03 which showed a large echodensity attached to the tricuspid valve suggestive of a vegetation. She had normal LV function with mild TR. A NATHAN was recommended. The patient denies any other significant past medical history. She denies diabetes or a history of hepatitis. She is HIV negative. ALLERGIES: SHELLFISH. CURRENT MEDICATIONS: Tylenol, subcutaneous heparin, methadone, vancomycin. FAMILY HISTORY: Noncontributory. SOCIAL HISTORY: She uses cocaine, injects IV drugs. LABS: White count 12.7, hemoglobin 8.7, platelets 92. INR 1.34. Sodium 134, potassium 4.4. Creatinine 1.7. LFTs are normal. Albumin is 1.5. Tox screen was positive for opiates, methadone, cocaine. Serology: HIV negative. PHYSICAL EXAM: General: The patient is withdrawing from heroin. Vital signs: She is currently afebrile, 98.1. HEENT: She is anicteric. Heart: S1, S2, regular, slightly tachycardic. Heart rate 112. Blood pressure 124/55. The heart was regular with no murmurs appreciated. Chest: Clear. Abdomen: Soft. Extremities: No edema. Skin: The skin had multiple excoriations on the dorsal surfaces of both hands where she injects IV heroine. There were also multiple excoriations in the lower extremities overlying the dorsum of the feet. EKG showed sinus tachycardia with incomplete right bundle. No OH prolongation. Chest x-ray was reviewed with Infectious Disease and there are suspected septic emboli. IMPRESSION: A 31-year-old female, IV drug user, with MRSA bacteremia and TTE consistent with right-sided endocarditis with possible septic emboli. PLAN: 1. Treat for endocarditis. Case discussed with Infectious Disease- CT chest planned to evaluate for septic emboli to lungs. 2. Will plan for NATHAN as there is a suggestion of septic emboli and the vegetation is described as large. 3. Daily EKGs. 4. Further recommendations pending above. Addendum: Due to the suspicion of septic emboli, a CT chest was done and showed septic emboli. I discussed case with ID, Dr. Sandesr. In light of vegetation, bacteremia and emboli a CT surgery consult was in order and thus the patient was transferred on an urgent basis to [facility] [place] for further work up and evaluation. Thank you for the consultation. MARVIN BAUGH M.D. [id number] MTDD
[2016-09-03] MEDS ORDERED: HEPARIN NA (PORCINE) 5,000 UNITS/ML 1ML VIAL SQ SCH (22:00)
[2016-09-04 02:24] VITALS: BP 126/62; PULSE 102; TEMP 97.6
[2016-09-04] MEDS ORDERED: VANCOMYCIN 1 GRAM (PRE-DOCKED) 1,000 MG/250 ML BAG IVPB SCH (10:00)
[2016-09-04] MEDS ORDERED: BACITRACIN 30 GM TUBE TOPICAL OINTMENT TP SCH (10:00)
[2016-09-04] MEDS ORDERED: METHADONE HCL 5 MG TABLET PO ONE (10:00)
--- NOTE | 2016-09-04 15:25 | DS ---
Physical Exam: SUBJECTIVE: Patient seen and examined OBJECTIVE: Vital Signs Period Temp Pulse Resp BP Sys/[place] Pulse Ox Last 24 Hr 97.6 F-98.9 F 102-107 20-22 126-138/61-72 95 PHYSICAL EXAM LABS Laboratory Results - last 24 hr 09/03/16 22:02 Random Vancomycin 19.149 CBC, BMP 09/03/16 06:30 09/03/16 06:30 HOSPITAL COURSE: Date of Admission:09/02/16 31 y/o F w/PMH of polydrug abuse presents to ER w/ c/o B/L hand swelling and R foot swelling. History was difficult to obtain as pt appeared to still be high on drugs/shaking. Pt has had hand swelling for approx 1 week and R foot swelling for 2 days. She states she only uses her hands/arms for IV drug use but not her feet. She says she has been picking at her feet. She uses IV heroin , 3 bundles per day, last use was yesterday morning. She smokes crack daily, she smokes "a couple hundred dollars worth" per day. She c/o sweats and chills since yesterday. She states she's been nauseous and vomiting for last week but denied any blood in vomit. She did say she has been spitting up blood though. Further history was difficult to obtain. Denies CP, SOB. Pt did say she would consider rehab. ER course was notable for: (1) CXR, clindamycin, EKG 31 year old female with h/o polysubstance abuse and IV heroin abuse present to the ED with lethargy and b/l hand swelling. Pt had Leukocytosis, tachycardia, redness, swelling, tenderness, heat in b/l hands, Pt with h/o IV drug abuse, last use 3 days ago, multiple track ramirez, Pt was placed on clindamycin 900mg IV q8h, blood culture was sent and pending, ID was consulted Dr Souza. Pt was diagnosed with Sepsis rt B/L hand cellulitis. Since Pt is an IV drug abuser with a murmur and leukocytosis, we have to be worried about Endocarditis, Blood culture positive Gram positive cocci in cluster presumptive MRSA, echocardiogram was done and it showed with vegetation in tricuspid valve ESR 47. Vancomycin 1 gm IV was added to the patient checking radom level keeping it 15-[address] Souza. Pt was diagnosed with Endocarditis. Cardiology Consult, Dr Miller was consulted as well and he planned on doing NATHAN. Pt was c/o yellow, brown, bloody sputum, productive cough, there was b/l crackles on auscultation. Pt also have multiple patchy alveolar changes and patchy infiltrates seen on chest XRay. we were trying to r/o PNA vs septic emboli. CT chest was ordered and it showed multiple cavitary nodules in b/l lung thorpe which is typical of Septic Emboli. Pt also has a UTI with UA with positive leuk est, wbc 35, Urine culture result pending. Pt also came with LUC with Cr 3.4, FENA was 0.78, with IV fluid cr improved to 1.7. Pt has multiple lesions and wound in b/l lower ext. pt also has right lower ext swelling. Xray and US of the right lower ext were done and it was negative for DVT and Fracture. Dr Reyes was consulted for wound management. Pt was also placed on a methadone taper with PRN Valium and Dr Baron was consulted for Detox rehab consult. View the severity of the patient condition and need for a Cardiothoracic surgeon playground monitor, pt has to be transferred to [facility] Date of Discharge: 09/04/16 Minutes to complete discharge: 45 Discharge Summary Reason For Visit: ACUTE RENAL FAILURE - Instructions Referrals: Leonid Rosales MD [Primary Care Provider] - Disposition: TRANSFER ACUTE CARE/OTHER HOSP - Home Medications Comprehensive Discharge Medication List: Ambulatory Orders NK [No Known Home Medication] 05/07/16 This patient is new to me today: No Emergency Visit: Yes ED Registration Date: 09/02/16 Care time: The patient presented to the Emergency Department on the above date and was hospitalized for further evaluation of their emergent condition. Critical Care patient: No - Discharge Referral Referred to [facility] No Physician Referral: Don Reyes DO ([facility])
--- NOTE | 2016-09-04 17:10 | EKG ---
Test Reason : Blood Pressure : / mmHG Vent. Rate : 112 BPM Atrial Rate : 112 BPM P-R Int : 120 ms QRS Dur : 096 ms QT Int : 358 ms P-R-T Axes : 041 039 045 degrees QTc Int : 488 ms SINUS TACHYCARDIA RSR' OR QR PATTERN IN V1 SUGGESTS RIGHT VENTRICULAR CONDUCTION DELAY BORDERLINE ECG WHEN COMPARED WITH ECG OF 02-SEP-2016 02:11, NO SIGNIFICANT CHANGE WAS FOUND Confirmed by DEN MARC, SIMONA ([id number]) on 09/04/2016 5:09:57 PM Referred By: Mehul HI Confirmed By:SIMONA CRENSHAW MD
[2016-09-05] MEDS ORDERED: METHADONE HCL 5 MG TABLET PO ONE (10:00)
--- NOTE | 2016-09-05 16:24 | PN ---
Problem List - Problems (1) Endocarditis due to Staphylococcus Code(s): I33.0 - ACUTE AND SUBACUTE INFECTIVE ENDOCARDITIS B95.8 - UNSP STAPHYLOCOCCUS THE CAUSE OF DISEASES CLASSD ELSWHR (2) Cellulitis Code(s): L03.90 - CELLULITIS, UNSPECIFIED (3) IV drug user Code(s): F19.90 - OTHER PSYCHOACTIVE SUBSTANCE USE, UNSPECIFIED, UNCOMPLICATED (4) Hep C w/o coma, chronic Code(s): B18.2 - CHRONIC VIRAL HEPATITIS C
[2016-09-06] MEDS ORDERED: METHADONE HCL 10 MG TABLET PO ONE (10:00)
[2016-09-07] MEDS ORDERED: METHADONE HCL 5 MG TABLET PO ONE (06:00)
== END 2016-09-04 01:20 | disposition short-term general hospital (02) | DRG 720 ==
LOC: JER 20:50 → JERBED 09-02 04:18 → J6S 09-02 19:29
PROVIDERS: ADMIT Internal Medicine; ATTEND Internal Medicine
DX: A41.9 Sepsis, unspecified organism (principal); I33.0 Acute and subacute infective endocarditis; B95.8 Unspecified staphylococcus as the cause of diseases classified elsewhere; N17.9 Acute kidney failure, unspecified; L03.114 Cellulitis of left upper limb; L03.113 Cellulitis of right upper limb; L03.115 Cellulitis of right lower limb; D72.829 Elevated white blood cell count, unspecified; R00.0 Tachycardia, unspecified; F11.23 Opioid dependence with withdrawal; E87.1 Hypo-osmolality and hyponatremia; E83.51 Hypocalcemia; F17.210 Nicotine dependence, cigarettes, uncomplicated; E86.0 Dehydration; E87.2 Acidosis; J98.4 Other disorders of lung
CPT/HCPCS: 36415; 71010-TC; 71250-TC; 73130-TC-LT; 73130-TC-RT; 73610-TC-RT; 73630-TC-RT; 80053; 80307; 81003; 81015; 82436; 82550; 82553; 82570; 83605; 83735; 84100; 84133; 84300; 84484; 84703; 85025; 85610; 85651; 85730; 86850; 86900; 86901; 87040; 87086; 87186; 87389; 93005; 93010; 93306-TC; 93971; 93971-TC; 99284-25; G0480; J1644